=== PATIENT | male | born 1965 | race Caucasian/White ===

== ENCOUNTER 2025-01-01 14:02 | Outpatient (CLI) | payer BC, SELFPAY ==
--- NOTE | 2025-01-01 14:08 | XR_ITS ---
FINAL REPORT CLINICAL HISTORY: Assess fecal burden NO PRIOR COMPARISON: None FINDINGS: A single view of the abdomen was obtained. There is a large amount of stool in the colon. Gas is noted in multiple loops of small bowel. No definite obstructive pattern is identified. There are no abnormal calcifications. IMPRESSION: Nonobstructive bowel gas pattern with a large stool burden. Reviewed, Interpreted and Dictated by Jarrod Castro MD Transcribed by Elizabeth Abarca Authenticated and [facility]
--- OUTSIDE RECORDS SUMMARY | 2025-01-01 14:10 | XMS_ITS | Clinical Summary ---
Author Organization [facility] Address [address] [place] [address] Care Team Providers Care Injury Prevention Coordinator Name Role Phone Aziza Rubalcava Primary Care Provider [phone] Allergies Active Allergy Reactions Criticality Noted Date Comments Codeine Rash Low 10/04/2023 Medications levothyroxine (Synthroid, Levoxyl) 25 MCG tablet Take 1 tablet (25 mcg) by mouth 1 (one) time each day before breakfast. Active Active Problems Problem Noted Date Diagnosed Date Primary osteoarthritis of both knees 07/26/2024 Social History Tobacco Use Types Packs/Day Years Used Date Smoking Tobacco: Never Smokeless Tobacco: Never Sex and Gender Information Value Date Recorded Sex Assigned at Not on file Legal Sex Male 8:54 PM EDT Gender Identity Not on file Sexual Orientation Not on file Last Filed Vital Signs Vital Sign Reading Time Taken Comments Blood Pressure 130/76 07/26/2024 8:27 AM EDT Pulse 61 10/04/2023 12:44 PM EDT Temperature - - Respiratory Rate - - Oxygen Saturation 98% 10/04/2023 12:44 PM EDT Inhaled Oxygen Concentration - - Weight 79.4 kg (175 lb) 07/26/2024 8:27 AM EDT Height 180.3 cm (5' 11 ) 07/26/2024 8:27 AM EDT Body Mass Index 24.41 07/26/2024 8:27 AM EDT Plan of Treatment Health Maintenance Due Date Last Done Comments [facility]-Depression Screening 1966 [facility]-HIV Screening 1966 [facility]-Hepatitis C Screening 1966 [facility]-/Child/Adol SDOH Screenings 1966 [id number]-ZMCNP-40 Vaccine (#1) 11/18/1971 [facility]- SDOH Screenings 1984 [facility]-Adult SDOH Screenings 1984 [facility]-DTaP,Tdap,and Td Vaccine s (1 - Tdap) 1985 [facility]-Hepatitis B Vaccines (1 of 3 - 19+ 3-dose series) 1985 CT Colonography 11/18/2011 Colonoscopy 11/18/2011 FIT-DNA 11/18/2011 FIT 11/18/2011 FOBT 11/18/2011 Sigmoidoscopy 11/18/2011 [facility]-Colorectal Cancer Screening 11/18/2011 [facility]-Pneumococcal Vaccine: 50 + Years (1 of 1 - PCV) 2016 [facility]-Zoster Vaccines (1 of 2) 2016 [facility]-Influenza Vaccine (#1) 2024 HPV Vaccines Aged Out No longer eligi ble based on patient's age to complete this topic [facility]-HIB Vaccines Aged Out No longer e ligible based on patient's age to complete this topic [facility]-Hepatitis A Vaccines Aged Out No longer eligible based on patient's age to complete this topic [facility]-IPV Vaccines Aged Out No longer e ligible based on patient's age to complete this topic [facility]-Rotavirus Vaccines Aged Out No lo nger eligible based on patient's age to complete this topic Insurance Care Teams Injury Prevention Coordinator Relationship Specialty Start Date End Date Aziza Rubalcava [address] [place] [address] PCP - General Internal Medicine 07/23/24
== END 2025-01-01 23:59 | disposition home or self-care (01) ==
LOC: RAD 14:05
PROVIDERS: PCP Internal Medicine; Visit Provider Internal Medicine Gastroenterology
DX: K59.00 Constipation, unspecified (principal); R14.0 Abdominal distension (gaseous)
CPT/HCPCS: 74018